=== PATIENT | female | born 1955 | race Two or more races ===

== ENCOUNTER 2024-10-06 14:34 | Outpatient (AMB) | payer OTHER, SELFPAY ==
[2024-10-06 15:14] VITALS: BP 151/78; PULSE 72; RESP 19; TEMP 36.7; O2SAT 98; BMI 40.0
--- NOTE | 2024-10-06 15:14 | ACNOTE_ITS ---
Vital Signs 10/06/24 15:14 Height 1.52 m Height Method Stated Weight 92.533 kg Weight Measurement Method Standing Scale BMI 40.0 BP 151/78 H Blood Pressure Source Automatic Cuff Blood Pressure Location Left Upper Arm Position Sitting Respiration 19 Pulse 72 Pulse Source Monitor Temp 98.1 F Temp Source Oral Pulse Oximetry (%) 98 Oxygen Delivery Method Room Air Allergies/Meds Allergies & Medications Allergies No Known Allergies Allergy (Verified 10/06/24 15:16) Medication Reconciliation FreeStyle Aris 3 Sensor (blood-glucose sensor) #2 ea 12/06/23 [Rx Confirmed 10/06/24] blood-glucose sensor (FreeStyle Aris 3 Sensor device) #1 ea 01/10/24 [Rx Confirmed 10/06/24] blood-glucose meter (Accu-Chek Guide Me Glucose Meter) #1 ea 05/22/24 [Rx Confirmed 10/06/24] blood sugar diagnostic (Accu-Chek Guide test strips) #50 ea 09/08/24 [Rx Confirmed 10/06/24] insulin lispro 100 unit/mL subcutaneous pen (Admelog SoloStar U-100 Insulin lispro) 3 unit (0.03 mL) subcut TID 30 days #2.7 mL 09/08/24 [Rx Confirmed 10/06/24] lancets (Accu-Chek Softclix Lancets) #100 ea 09/08/24 [Rx Confirmed 10/06/24] pen needle, diabetic 31 gauge x 3/16 (Comfort EZ Pen Chadwick) #1,200 ea 09/08/24 [Rx Confirmed 10/06/24] atorvastatin 40 mg tablet 40 mg PO HS #30 tabs 10/06/24 [Rx] insulin glargine 100 unit/mL (3 mL) subcutaneous pen (Lantus Solostar U-100 Insulin) 12 unit (0.12 mL) subcut QAM 30 days #3.6 mL 10/06/24 [Rx] metformin 1,000 mg tablet 1,000 mg PO DAILY #30 tabs 10/06/24 [Rx] semaglutide (weight loss) 0.25 mg/0.5 mL subcutaneous pen injector 0.25 mg (0.5 mL) subcut QWEEK #2 mL 10/06/24 [Rx] MA Intake Visit Data Collection New Patient or Established: Established Patient (seen at [facility] within 3 years) Seen by Clinical Staff ONLY (RN/MA): No Pain Present Currently: No Pain scale:: 0 Pain Scale Used: Benavidez-Esparza/Numerical PCP or OBGYN visit in last 3 months: Yes Smoking Status Smoking Status: Never smoker Immunization / Flu Flu Vaccine in the Last 12 Months: No Flu Vaccine Exclusion Criteria: No Exclusion Criteria Past Medical History Past Medical History NEUROLOGIC: Positive Traumatic Brain Injury; Negative Neurological Disorders or Seizures CARDIAC: Positive Cardiac Disorders, Hypercholesterolemia and Hypertension; Negative Congestive Heart Failure RESPIRATORY: Negative Chronic Obstructive Pulmonary Disease (COPD) GASTROINTESTINAL: Negative Gastrointestinal Disorders GENITOURINARY: Negative Genitourinary Disorders or Renal Disease ENDOCRINE: Positive Endocrine Disorders and Diabetes Mellitus Type 2; Negative Diabetes Mellitus Type 1 HEMATOLOGIC: Negative Blood Disorders OTHER HISTORY: Positive Chicken Pox, Measles and Mumps; Negative Autoimmune Disease, Blood Transfusions, Blood Transfusion Reaction, Anesthesia Reactions or Cancer Family History FAMILY HISTORY: Positive Family Cancer (Mother breast cancer, sister with metastatic CA, unknown); Negative Family Psychiatric Problems, Family Respiratory Disorders, Family Cardiac Disorders, Family Gastrointestinal Problems, Family Surgery or Family Anesthesia Reaction Surgical History SURGICAL: Positive Tubal Ligation (1990); Negative Cardiac Surgery, Endocrine Surgery, Ear Surgery, Abdominal Surgery, Nephrectomy, Joint Replacement or Neurologic Surgery Social History SMOKING STATUS: Smoking status: Never smoker ALCOHOL: Alcohol Intake: Never HOUSING: Housing: House LIVES WITH: Lives With: Family Patient Portal [facility] Social History Living Situation History Housing: House Tobacco History Smoking Status: Never smoker Alcohol History Alcohol Intake: Never Review of Systems Report any current symptoms Only answer those that you have currently: Past Medical History Past Medical History Have you ever been diagnosed with any of the following: Neurological Problems Seizures: No Traumatic Brain Injury: Yes Cardiology Problems Hypercholesterolemia: Yes Congestive Heart Failure: No Hypertension: Yes Respiratory Problems Chronic Obstructive Pulmonary Disease (COPD): No Genital/Urinary Problems Renal Disease: No Endocrine Problems Diabetes Mellitus Type 1: No Diabetes Mellitus Type 2: Yes Other Problems Autoimmune Disease: No Blood Transfusions: No Blood Transfusion Reaction: No Anesthesia Reactions: No Chicken Pox: Yes Measles: Yes Mumps: Yes Cancer: No History of Present Illness HPI Narrative 68-year-old female with past medical history of hypertension, diabetes who presented to the clinic for follow-up after phone appointment. During previous phone appointment 2 days ago patient stated she had severe headache that was not relieved with Advil, provider recommended patient to present to clinic and further evaluate. Today patient refers resolution of headache, however systolic blood pressure noted to be 163, patient's medications were reviewed in the system, however they do not match what patient is taking (as per physical bag with medicine bottles). Patient refers only taking what is physically here which is: Atorvastatin 40, losartan 25, carvedilol 6.5, and Lasix 40. She also refers taking insulin 15 units of glargine not physically present. Patient advised to increase dose of losartan to 50 as headache is most likely related to hypertension. New prescription sent to pharmacy. Patient advised to check blood pressure at home and bring a diary. CBC, A1c and CMP ordered for next visit, we will reevaluate patient in 1 month and consider switching to Mounjaro or Ozempic + metformin. 08/25/2024?Los Galvez MD. Patient is following up with an over the phone appointment. She was seen in July due to recurrent headache that seem to be consistent with elevated blood pressures. Patient has been feeling well since we increase her blood pressure medication, losartan to 50 mg p.o. daily. Patient has not had any more recurrent episodes of headaches or blurry vision and denies any chest pain or palpitations. Patient's blood sugars have been in the 160s fasting and repeat A1c came back at 10.0 which is a slight improvement from the 10.3. CBC was within normal limits and and for some reason there is no CMP provided. I refilled patient's atorvastatin and metformin and will start patient on Ozempic for further diabetic control. Will order CMP as well as microalbumin/creatinine ratio as patient has a long history of diabetes and may be dumping protein in her urine. Patient agrees with the plan and will follow- up in 2 weeks for lab results. 09/08/24 Patient is following up with over the phone appointment. She has been doing well since last conversation and after further questioning she states that her fasting glucose has been in the 60s and patient denies any symptoms. She was counseled on low blood sugar levels and was instructed to cut down her long acting insulin to 12 units per day. She was also advised to stop her lispro before bed if she did not eat too much. Patient's microalbumin/creatning ratio is 2146 with 1+ protein in UA. She was advised to increase her losartan to 100mg per day. We are holding SGLT2 as patient has a history of UTI requiring admission. Will consider starting finerenone. Patient is otherwise feeling well denying any chest pain, palpitations, SOB, dysuria or diarrhea. She continues to take her metformin and we will refill her medications today. She did not get semaglutide at the pharmacy. Will attempt resending it to help control diabetes and wean her off of insulin. 10/06/2024 patient is here for follow-up and was accompanied by her . She has no acute complaints and denies any chest pain, shortness of breath, palpitations, diarrhea or constipation or dysuria. When asked about her fasting glucose patient's stated that she does not measure her glucose levels. Patient was counseled on the importance of measuring at least the fasting glucose levels. She was told to stick to the Lantus 12 units/day and if she feels tremulous and diaphoretic to measure blood sugar levels and eat some orange juice or sandwich. asked if they could use 12 units of the short acting as he was strongly recommended not to do so and I further counseled them on how the long-acting work versus the short acting insulin. They are also counseled on the importance of detecting hypoglycemic episodes. Patient and understood and agreed with the plan. She needed refills on her medications including metformin insulin and blood pressure medication. Patient did not get a chance to repeat her A1c and will be ordered to the lab today so she can repeated. Patient was also unable to collect her semaglutide from the pharmacy. Emphasized to the patient that she needs to ask for the semaglutide as it would help control her diabetes better and as well as weight loss. Review of Systems Review of Systems Systems Reviewed: All systems reviewed, normal except as documented Objective/Exam Narrative Physical exam: Constitutional: Well nourished and in no acute distress CVS: RRR, S1 and S2 present, no murmurs, rubs or gallops . RESP: CTAB, no SOB, no rales, rhonchi or wheezing. No respiratory Distress GI: Normal BS, Nontender/Nondistended. MSK: Full range of motion, No trauma or deformities or masses. Psych: (AAO) x3. Appropriate mood and affect. Assessment & Plan Diagnosis / Problem List (1) Insulin dependent diabetes mellitus: Status: Acute Assessment & Plan: A1c decreased from > 10.3-10 Microalbumin/createning ration os 2146 Patient has not been measuring her blood glucose levels and was counseled on the importance of measuring it Plan: Continue lantus 12 units qday Continue lispro 3 units 3 times a day and avoid at night if not having a large meal Continue Metforming 1000mg twice a day start semaglutide 0.25 mg IV q. weekly (2) Hypertension: Status: Acute Qualifiers: Hypertension type: primary hypertension Qualified Code(s): I10 - Essential (primary) hypertension Assessment & Plan: Stable, she denies any headache blurry vision or dizziness She last saw the veterans employment representative who started her on Lasix but she does not remember exactly what dose Plan: Continue losartan 100mg p.o. daily Continue to follow-up with cardiology Plan Will follow-up with patient in 4 weeks to see if she was approved for GLP-1 inhibitors Orders: Orders Ambulatory Hemoglobin A1C 10/06/24 E11.00 - Type 2 diabetes mellitus with hyperosmolarity without nonketotic hyperglycemic-hyperosmolar coma ([facility]) Additional Assessment Attending note: I, Fred Raphael MD, attest that I was physically present for the herbert portions of the service and evaluated the patient with the resident and I reviewed and discussed the case with the resident and agree with the resident's findings and plans of care as documented above. Follow-up visit. Diabetes self- care reviewed including diet, exercise, footcare, eye care, insulin injections. Short acting and long-acting insulin reviewed. Repeat labs ordered today. Patient has not yet obtained semaglutide, will attempt to do so. Needed refills provided today. Fred Raphael MD Advanced Care Planning Advance care planning discussed with:: patient Physician Billing Established Patient Established Patient: E/M Level 3-CPT 44701 Office Procedures [facility] Level of Care Nursing/Assessment Patient Status: Established Patient Nursing Assessment/Reassessment: Medication Reconciliation, Update PMH in EMR and Vital Signs Coordination of Care: Complex Care and Chronic Disease 1-5, Education Complex Pt/Fam, Results/Orders obtained and Staff clarify orders Established Patient Charge Established Patient Point Assignment: 90 Established Patient Point Charge: Level 3 (80-115)
== END 2024-10-06 15:52 | disposition home or self-care (01) ==
LOC: HODAHC 14:34
PROVIDERS: PCP Student in an Organized Health Care Education/Training Program; Referring Provider Student in an Organized Health Care Education/Training Program; Supervising Provider Internal Medicine; Visit Provider Student in an Organized Health Care Education/Training Program
DX: E11.9 Type 2 diabetes mellitus without complications (principal); Z79.4 Long term (current) use of insulin; Z79.84 Long term (current) use of oral hypoglycemic drugs; I10 Essential (primary) hypertension
CPT/HCPCS: 99213; G0463

== ENCOUNTER → 2024-10-07 | Outpatient (CLI) | payer OTHER, SELFPAY | END | disposition home or self-care (01) | LOC: COPL 08:39 | PROVIDERS: PCP Internal Medicine; Referring Provider Student in an Organized Health Care Education/Training Program; Visit Provider Student in an Organized Health Care Education/Training Program | DX: Z53.8 Procedure and treatment not carried out for other reasons (principal) | CPT/HCPCS: 36415; 83036 ==

== ENCOUNTER → 2024-10-08 | Outpatient (CLI) | payer OTHER, SELFPAY ==
[2024-10-08 10:40] LABS: Glucose Estimated Average 335 mg/dL (80-131); Hemoglobin A1C 13.3 % Hgb (4.8-6.0)
== END | disposition home or self-care (01) ==
PROVIDERS: PCP Student in an Organized Health Care Education/Training Program; Referring Provider Student in an Organized Health Care Education/Training Program; Visit Provider Student in an Organized Health Care Education/Training Program
DX: E11.00 Type 2 diabetes mellitus with hyperosmolarity without nonketotic hyperglycemic-hyperosmolar coma (NKHHC) (principal)
CPT/HCPCS: 36415; 83036

== ENCOUNTER 2025-01-14 09:46 | Outpatient (AMB) | payer OTHER, SELFPAY ==
[2025-01-14 10:06] VITALS: BP 161/78; PULSE 75; RESP 16; TEMP 36.6; O2SAT 91; BMI 42.2
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
== END 2025-01-14 11:30 | disposition home or self-care (01) ==
LOC: HODAHC 09:46
PROVIDERS: PCP Student in an Organized Health Care Education/Training Program; Referring Provider Student in an Organized Health Care Education/Training Program; Supervising Provider Internal Medicine
DX: Z76.0 Encounter for issue of repeat prescription (principal); E66.9 Obesity, unspecified; R53.1 Weakness; Z68.41 Body mass index [BMI] 40.0-44.9, adult; E11.9 Type 2 diabetes mellitus without complications; Z79.4 Long term (current) use of insulin; Z79.84 Long term (current) use of oral hypoglycemic drugs; I10 Essential (primary) hypertension; Z74.09 Other reduced mobility
CPT/HCPCS: 99213; G0463

== ENCOUNTER 2025-03-18 09:43 | Outpatient (AMB) | payer MEDICARE, BC, SELFPAY ==
[2025-03-18 10:03] VITALS: BP 189/80; PULSE 65; RESP 18; TEMP 36.4; O2SAT 95; BMI 41.3
--- NOTE | 2025-03-18 10:03 | ACNOTE_ITS ---
Vital Signs 03/18/25 10:03 Height 1.52 m Height Method Stated Weight 95.368 kg Weight Measurement Method Standing Scale BMI 41.3 BP 189/80 H Blood Pressure Source Automatic Cuff Blood Pressure Location Right Upper Arm Position Sitting Respiration 18 Pulse 65 Pulse Source Monitor Temp 97.5 F Temp Source Temporal Artery Scan Pulse Oximetry (%) 95 Oxygen Delivery Method Room Air Allergies/Meds Allergies & Medications Allergies No Known Allergies Allergy (Verified 03/18/25 10:06) Medication Reconciliation atorvastatin 40 mg tablet 40 mg PO HS #30 tabs 01/09/25 [Rx Confirmed 03/18/25] Held on 01/14/25. Instructions: Doctor's Order blood sugar diagnostic (Accu-Chek Guide test strips) #50 ea 03/18/25 [Rx] blood-glucose meter (Accu-Chek Guide Me Glucose Meter) #1 ea 03/18/25 [Rx] blood-glucose sensor (FreeStyle Aris 3 Sensor device) #1 ea 03/18/25 [Rx] blood-glucose,mechanical technical service specialist,cont (FreeStyle Aris 3 Central) #2 ea 03/18/25 [Rx] carvedilol 6.25 mg tablet 6.25 mg PO BID #60 tabs 03/18/25 [Rx] furosemide 40 mg tablet 20 mg (1/2 x 40 mg) PO QAM #30 tabs 03/18/25 [Rx] insulin glargine 100 unit/mL (3 mL) subcutaneous pen (Lantus Solostar U-100 Insulin) 15 unit (0.15 mL) subcut QAM 30 days #4.5 mL 03/18/25 [Rx] insulin lispro 100 unit/mL subcutaneous pen (Admelog SoloStar U-100 Insulin lispro) 3 unit (0.03 mL) subcut TID 30 days #15 mL 03/18/25 [Rx] lancets (Accu-Chek Softclix Lancets) #100 ea 03/18/25 [Rx] losartan 100 mg tablet 100 mg PO QDAY #30 tabs 03/18/25 [Rx] metformin 1,000 mg tablet 1,000 mg PO DAILY #30 tabs 03/18/25 [Rx] pen needle, diabetic 31 gauge x 3/16 (Comfort EZ Pen Collison) #100 ea 03/18/25 [Rx] semaglutide 3 mg tablet (Rybelsus) 3 mg PO QDAY 30 days #30 tabs 03/18/25 [Rx] JOSE Intake Visit Data Collection New Patient or Established: Established Patient (seen at [facility] within 3 years) Seen by Clinical Staff ONLY (RN/JOSE): No Pain Present Currently: No Pain scale:: 0 Pain Scale Used: Benavidez-Esparza/Numerical Garnetter Required: No PCP or OBGYN visit in last 3 months: No Hx Now: No Do You Feel Safe at Home: Yes Authorities Contacted: N/A Smoking Status Smoking Status: Never smoker Immunization / Flu Flu Vaccine in the Last 12 Months: No Flu Vaccine Exclusion Criteria: No Exclusion Criteria Past Medical History Past Medical History NEUROLOGIC: Positive Traumatic Brain Injury; Negative Neurological Disorders or Seizures CARDIAC: Positive Cardiac Disorders, Hypercholesterolemia and Hypertension; Negative Congestive Heart Failure RESPIRATORY: Negative Chronic Obstructive Pulmonary Disease (COPD) GASTROINTESTINAL: Negative Gastrointestinal Disorders GENITOURINARY: Negative Genitourinary Disorders or Renal Disease ENDOCRINE: Positive Endocrine Disorders and Diabetes Mellitus Type 2; Negative Diabetes Mellitus Type 1 HEMATOLOGIC: Negative Blood Disorders OTHER HISTORY: Positive Chicken Pox, Measles and Mumps; Negative Autoimmune Disease, Blood Transfusions, Blood Transfusion Reaction, Anesthesia Reactions or Cancer Family History FAMILY HISTORY: Positive Family Cancer (Mother breast cancer, sister with metastatic CA, unknown); Negative Family Psychiatric Problems, Family Respiratory Disorders, Family Cardiac Disorders, Family Gastrointestinal Problems, Family Surgery or Family Anesthesia Reaction Surgical History SURGICAL: Positive Tubal Ligation (1990); Negative Cardiac Surgery, Endocrine Surgery, Ear Surgery, Abdominal Surgery, Nephrectomy, Joint Replacement or Neurologic Surgery Social History SMOKING STATUS: Smoking status: Never smoker ALCOHOL: Alcohol Intake: Never HOUSING: Housing: House LIVES WITH: Lives With: Family Patient Portal Jean Social History Living Situation History Housing: House Tobacco History Smoking Status: Never smoker Alcohol History Alcohol Intake: Never Domestic Abuse History Do You Feel Safe at Home: Yes Review of Systems Report any current symptoms Only answer those that you have currently: Past Medical History Past Medical History Have you ever been diagnosed with any of the following: Neurological Problems Seizures: No Traumatic Brain Injury: Yes Cardiology Problems Hypercholesterolemia: Yes Congestive Heart Failure: No Hypertension: Yes Respiratory Problems Chronic Obstructive Pulmonary Disease (COPD): No Genital/Urinary Problems Renal Disease: No Endocrine Problems Diabetes Mellitus Type 1: No Diabetes Mellitus Type 2: Yes Other Problems Autoimmune Disease: No Blood Transfusions: No Blood Transfusion Reaction: No Anesthesia Reactions: No Chicken Pox: Yes Measles: Yes Mumps: Yes Cancer: No History of Present Illness HPI Narrative 68-year-old female with past medical history of hypertension, diabetes who presented to the clinic for follow-up after phone appointment. During previous phone appointment 2 days ago patient stated she had severe headache that was not relieved with Advil, provider recommended patient to present to clinic and further evaluate. Today patient refers resolution of headache, however systolic blood pressure noted to be 163, patient's medications were reviewed in the system, however they do not match what patient is taking (as per physical bag with medicine bottles). Patient refers only taking what is physically here which is: Atorvastatin 40, losartan 25, carvedilol 6.5, and Lasix 40. She also refers taking insulin 15 units of glargine not physically present. Patient advised to increase dose of losartan to 50 as headache is most likely related to hypertension. New prescription sent to pharmacy. Patient advised to check blood pressure at home and bring a diary. CBC, A1c and CMP ordered for next visit, we will reevaluate patient in 1 month and consider switching to Mounjaro or Ozempic + metformin. 08/25/2024?Los Galvez MD. Patient is following up with an over the phone appointment. She was seen in July due to recurrent headache that seem to be consistent with elevated blood pressures. Patient has been feeling well since we increase her blood pressure medication, losartan to 50 mg p.o. daily. Patient has not had any more recurrent episodes of headaches or blurry vision and denies any chest pain or palpitations. Patient's blood sugars have been in the 160s fasting and repeat A1c came back at 10.0 which is a slight improvement from the 10.3. CBC was within normal limits and and for some reason there is no CMP provided. I refilled patient's atorvastatin and metformin and will start patient on Ozempic for further diabetic control. Will order CMP as well as microalbumin/creatinine ratio as patient has a long history of diabetes and may be dumping protein in her urine. Patient agrees with the plan and will follow- up in 2 weeks for lab results. 09/08/24 Patient is following up with over the phone appointment. She has been doing well since last conversation and after further questioning she states that her fasting glucose has been in the 60s and patient denies any symptoms. She was counseled on low blood sugar levels and was instructed to cut down her long acting insulin to 12 units per day. She was also advised to stop her lispro before bed if she did not eat too much. Patient's microalbumin/creatning ratio is 2146 with 1+ protein in UA. She was advised to increase her losartan to 100mg per day. We are holding SGLT2 as patient has a history of UTI requiring admission. Will consider starting finerenone. Patient is otherwise feeling well denying any chest pain, palpitations, SOB, dysuria or diarrhea. She continues to take her metformin and we will refill her medications today. She did not get semaglutide at the pharmacy. Will attempt resending it to help control diabetes and wean her off of insulin. 10/06/2024 patient is here for follow-up and was accompanied by her . She has no acute complaints and denies any chest pain, shortness of breath, palpitations, diarrhea or constipation or dysuria. When asked about her fasting glucose patient's stated that she does not measure her glucose levels. Patient was counseled on the importance of measuring at least the fasting glucose levels. She was told to stick to the Lantus 12 units/day and if she feels tremulous and diaphoretic to measure blood sugar levels and eat some orange juice or sandwich. asked if they could use 12 units of the short acting as he was strongly recommended not to do so and I further counseled them on how the long-acting work versus the short acting insulin. They are also counseled on the importance of detecting hypoglycemic episodes. Patient and understood and agreed with the plan. She needed refills on her medications including metformin insulin and blood pressure medication. Patient did not get a chance to repeat her A1c and will be ordered to the lab today so she can repeated. Patient was also unable to collect her semaglutide from the pharmacy. Emphasized to the patient that she needs to ask for the semaglutide as it would help control her diabetes better and as well as weight loss. 01/14/2025. Here to follow-up for medication refill. Has been seen by cardiology, Dr. Pearl, for lower extremity edema, and was prescribed LASIX 40 daily and CARVEDILOL 6.25 which she is currently taking. She is unaware if she was diagnosed with heart failure. However, she has an appointment with cardiology tomorrow. Reports increasing difficulty with ambulation while running or j ogging, and trouble getting up from seated position. Reports an episode where she fell after tripping on the sidewalk, she had to call somebody to help lift her up. She states her legs aren't as strong as as used to be. Will order physical therapy. She checks her GLUCOSE in the morning before meal, on average she gets a reading of 170. During last visit, SEMAGLUTIDE was added, however was not approved by her insurance. Will try RYBELSUS at this time. She is taking LOSARTAN 50 mg daily, should be on 100 mg daily, states her blood pressure usually around 160. 03/18/2025 Returns to office for follow-up. Her insurance was terminated after she left her job, has new coverage now. Subsequently was unable to get her meds and lab orders. She has insulin at home but currently only using long-acting. Not checking her glucose at home. We had ordered CGS device but was unable to get it due to lack of insurance coverage. BP elevated today, 189/80. HR 18. Denies MCDANIEL, visual or auditory changes, weakness or lightheadedness. Denies fever, chills, headaches, chest pain, sob, cough, GI or urinary symptoms. Had trace ishan LE edema on exam, lungs CTAB w/o w/r/r. We reordered meds, and GCM, decreased LASIX to 20 mg daily given improvement in LE edema. New cardiology referral placed. Ordered labs: CBC, CMP, A1C, TSH, Lipids. Will follow-up in 2 weeks. Objective/Exam Narrative Physical exam: GENERAL * Obese, otherwise normal-appearing adult female, NAD HEENT * NCAT.?MAUREEN. Oral mucosa is moist. Patent Nares NECK * Supple, nontender, no thyromegaly, no meningismus, no JVD, no step offs CHEST * RRR, no m/g/r * CTAB, no w/r/r. Symmetrical chest rise. No intercostal subcostal retraction * Atraumatic, nontender, no crepitus, symmetrical expansion. ABDOMEN * Soft, flat, nontender. No guarding/rebound tenderness/masses. * Bowel sounds presents EXTREMITIES * Trace ishan LE edema. No rashes SKIN * Warm and dry, no jaundice/rashes. NEUROMUSCULAR * No lumbar or midline, no CVA, no paraspinal muscle spasm or tenderness. * Moves all 4 extremities well, with full ROM and good CSM. * JOHNSON x4, CN II-XII grossly intact. * No focal neurologic deficits. PSYCHIATRY * Normal mood and affect, cooperative, no SI or HI or hallucinations. Assessment & Plan Diagnosis / Problem List (1) Insulin dependent diabetes mellitus: Status: Acute Assessment & Plan: No recent A1C on file. Was unable to obtain labs 2/2 insruance coverage. Not checking home glucose. Finger stick glucose 236 today Plan: Increased basal insulin to 15 units HS Refill insulin 3 units TID Reordered REBELSUS and METFORMIN 1000 MG qday Return with glucoe reading, given iinstruction and template Ordered CGB, glucose monitor and strips, A1C (2) Hypertension: Status: Acute Qualifiers: Hypertension type: primary hypertension Qualified Code(s): I10 - Essential (primary) hypertension Assessment & Plan: Poorly controlled. Out of medication 2/2 insurance coverage Does not check Bp at home BP 189/80, HR 65 Asymptomatic without chest pain/pressure, sob, headache, visual/auditory changes Plan: Reorder CAREDILOL 6.25 BID Reordered LOSARTAN 100 mg Gave blood pressure log (3) Lower extremity edema: Status: Acute Assessment & Plan: Concern for CHF given LE edema Has been out of LASIX 40 mg daily Denies sob, orthopnea, chest pain, cough or LE edema Had trace ishan LE edema, lungs clear with crackles or wheezing Plan: Place referral for cardiology, states she had CATH done earlier this year, records not on file Deferred ECHO to cardiology Ordered labs CBC, CMP, LIPID, TSH, BNP, A1C Orders: Orders CBC Today E11.00 - Type 2 diabetes mellitus with hyperosmolarity without nonketotic hyperglycemic-hyperosmolar coma ([facility]), Z00.01 - Encounter for general adult medical examination with abnormal findings Comprehensive Metabolic Panel Today E11.00 - Type 2 diabetes mellitus with hyperosmolarity without nonketotic hyperglycemic-hyperosmolar coma ([facility]), I50.9 - Heart failure, unspecified Ambulatory Hemoglobin A1C Today E11.00 - Type 2 diabetes mellitus with hyperosmolarity without nonketotic hyperglycemic-hyperosmolar coma ([facility]) Lipid Panel Today I50.9 - Heart failure, unspecified Thyroid Stimulating Hormone Today I50.9 - Heart failure, unspecified, Z00.01 - Encounter for general adult medical examination with abnormal findings B-Type Natriuretic Peptide Today I50.9 - Heart failure, unspecified Referrals Cardiology I50.9 - Heart failure, unspecified, R60.0 - Localized edema Advanced Care Planning Advance care planning discussed with:: patient Office Procedures [facility] Level of Care Nursing/Assessment Patient Status: Established Patient Nursing Assessment/Reassessment: Medication Reconciliation, Update PMH in EMR and Vital Signs Coordination of Care: Complex Care and Chronic Disease 1-5, Consent,records obtained, informed consent, Education Simp Pt/Fam and Staff clarify orders Established Patient Charge Established Patient Point Assignment: 85 Established Patient Point Charge: EP Level 3 (80-115)
== END 2025-03-18 11:10 | disposition home or self-care (01) ==
PROVIDERS: Supervising Provider Internal Medicine
DX: E11.9 Type 2 diabetes mellitus without complications (principal); I10 Essential (primary) hypertension; R60.0 Localized edema; Z79.4 Long term (current) use of insulin
CPT/HCPCS: 99213; G0463

== ENCOUNTER 2025-04-01 09:11 | Outpatient (AMB) | payer MEDICARE, BC, SELFPAY ==
[2025-04-01 09:50] VITALS: BP 191/83; PULSE 63; RESP 20; TEMP 36.4; O2SAT 96; BMI 40.3
--- NOTE | 2025-04-01 09:50 | ACNOTE_ITS ---
Vital Signs 04/01/25 09:50 Height 1.52 m Height Method Stated Weight 93.157 kg Weight Measurement Method Standing Scale BMI 40.3 BP 191/83 H Blood Pressure Source Automatic Cuff Blood Pressure Location Right Upper Arm Position Sitting Respiration 20 Pulse 63 Pulse Source Monitor Temp 97.5 F Temp Source Temporal Artery Scan Pulse Oximetry (%) 96 Oxygen Delivery Method Room Air Allergies/Meds Allergies & Medications Allergies No Known Allergies Allergy (Verified 04/01/25 09:51) Medication Reconciliation atorvastatin 40 mg tablet 40 mg PO HS #30 tabs 04/15/25 [Rx] blood sugar diagnostic (Accu-Chek Guide test strips) #50 ea 04/15/25 [Rx] blood-glucose meter (Accu-Chek Guide Me Glucose Meter) #1 ea 04/15/25 [Rx] blood-glucose sensor (FreeStyle Aris 3 Sensor device) #1 ea 04/15/25 [Rx] blood-glucose,artist color separation,cont (FreeStyle Aris 3 [place]) #2 ea 04/15/25 [Rx] carvedilol 6.25 mg tablet 6.25 mg PO BID #60 tabs 04/15/25 [Rx] furosemide 40 mg tablet 20 mg (1/2 x 40 mg) PO QAM #30 tabs 04/15/25 [Rx] insulin glargine 100 unit/mL (3 mL) subcutaneous pen (Lantus Solostar U-100 Insulin) 15 unit (0.15 mL) subcut QAM 30 days #4.5 mL 04/15/25 [Rx] insulin lispro 100 unit/mL subcutaneous pen (Admelog SoloStar U-100 Insulin lispro) 3 unit (0.03 mL) subcut TID 30 days #15 mL 04/15/25 [Rx] lancets (Accu-Chek Softclix Lancets) #100 ea 04/15/25 [Rx] losartan 100 mg tablet 100 mg PO QDAY #30 tabs 04/15/25 [Rx] metformin 1,000 mg tablet 1,000 mg PO DAILY #30 tabs 04/15/25 [Rx] pen needle, diabetic 31 gauge x 3/16 (Comfort EZ Pen [place]) #100 ea 04/15/25 [Rx] semaglutide 3 mg tablet (Rybelsus) 3 mg PO QDAY 30 days #30 tabs 04/15/25 [Rx] MA Intake Visit Data Collection New Patient or Established: Established Patient (seen at [facility] within 3 years) Pain Present Currently: No PCP or OBGYN visit in last 3 months: Yes Smoking Status Smoking Status: Never smoker Immunization / Flu Flu Vaccine in the Last 12 Months: No Flu Vaccine Exclusion Criteria: Refused by Patient Past Medical History Past Medical History NEUROLOGIC: Positive Traumatic Brain Injury; Negative Neurological Disorders or Seizures CARDIAC: Positive Cardiac Disorders, Hypercholesterolemia and Hypertension; Negative Congestive Heart Failure RESPIRATORY: Negative Chronic Obstructive Pulmonary Disease (COPD) GASTROINTESTINAL: Negative Gastrointestinal Disorders GENITOURINARY: Negative Genitourinary Disorders or Renal Disease ENDOCRINE: Positive Endocrine Disorders and Diabetes Mellitus Type 2; Negative Diabetes Mellitus Type 1 HEMATOLOGIC: Negative Blood Disorders OTHER HISTORY: Positive Chicken Pox, Measles and Mumps; Negative Autoimmune Disease, Blood Transfusions, Blood Transfusion Reaction, Anesthesia Reactions or Cancer Family History FAMILY HISTORY: Positive Family Cancer (Mother breast cancer, sister with metastatic CA, unknown); Negative Family Psychiatric Problems, Family Respiratory Disorders, Family Cardiac Disorders, Family Gastrointestinal Problems, Family Surgery or Family Anesthesia Reaction Surgical History SURGICAL: Positive Tubal Ligation (1990); Negative Cardiac Surgery, Endocrine Surgery, Ear Surgery, Abdominal Surgery, Nephrectomy, Joint Replacement or Neurologic Surgery Social History SMOKING STATUS: Smoking status: Never smoker ALCOHOL: Alcohol Intake: Never HOUSING: Housing: House LIVES WITH: Lives With: Family Patient Portal Questionaires PHQ-9 PHQ-2 Over the last 2 weeks, how often have you been bothered by any of the following problems? 1. Little interest or pleasure in doing things: not at all 2. Feeling down, depressed, or hopeless: not at all Total score: 0 Depression screen completed yes Social History Living Situation History Housing: House Tobacco History Smoking Status: Never smoker Alcohol History Alcohol Intake: Never Review of Systems Report any current symptoms Only answer those that you have currently: Past Medical History Past Medical History Have you ever been diagnosed with any of the following: Neurological Problems Seizures: No Traumatic Brain Injury: Yes Cardiology Problems Hypercholesterolemia: Yes Congestive Heart Failure: No Hypertension: Yes Respiratory Problems Chronic Obstructive Pulmonary Disease (COPD): No Genital/Urinary Problems Renal Disease: No Endocrine Problems Diabetes Mellitus Type 1: No Diabetes Mellitus Type 2: Yes Other Problems Autoimmune Disease: No Blood Transfusions: No Blood Transfusion Reaction: No Anesthesia Reactions: No Chicken Pox: Yes Measles: Yes Mumps: Yes Cancer: No History of Present Illness [facility] Narrative 68-year-old female with past medical history of hypertension, diabetes who presented to the clinic for follow-up after phone appointment. During previous phone appointment 2 days ago patient stated she had severe headache that was not relieved with Advil, provider recommended patient to present to clinic and further evaluate. Today patient refers resolution of headache, however systolic blood pressure noted to be 163, patient's medications were reviewed in the system, however they do not match what patient is taking (as per physical bag with medicine bottles). Patient refers only taking what is physically here which is: Atorvastatin 40, losartan 25, carvedilol 6.5, and Lasix 40. She also refers taking insulin 15 units of glargine not physically present. Patient advised to increase dose of losartan to 50 as headache is most likely related to hypertension. New prescription sent to pharmacy. Patient advised to check blood pressure at home and bring a diary. CBC, A1c and CMP ordered for next visit, we will reevaluate patient in 1 month and consider switching to Mounjaro or Ozempic + metformin. 08/25/2024?Los Galvez MD. Patient is following up with an over the phone appointment. She was seen in July due to recurrent headache that seem to be consistent with elevated blood pressures. Patient has been feeling well since we increase her blood pressure medication, losartan to 50 mg p.o. daily. Patient has not had any more recurrent episodes of headaches or blurry vision and denies any chest pain or palpitations. Patient's blood sugars have been in the 160s fasting and repeat A1c came back at 10.0 which is a slight improvement from the 10.3. CBC was within normal limits and and for some reason there is no CMP provided. I refilled patient's atorvastatin and metformin and will start patient on Ozempic for further diabetic control. Will order CMP as well as microalbumin/creatinine ratio as patient has a long history of diabetes and may be dumping protein in her urine. Patient agrees with the plan and will follow- up in 2 weeks for lab results. 09/08/24 Patient is following up with over the phone appointment. She has been doing well since last conversation and after further questioning she states that her fasting glucose has been in the 60s and patient denies any symptoms. She was counseled on low blood sugar levels and was instructed to cut down her long acting insulin to 12 units per day. She was also advised to stop her lispro before bed if she did not eat too much. Patient's microalbumin/creatning ratio is 2146 with 1+ protein in UA. She was advised to increase her losartan to 100mg per day. We are holding SGLT2 as patient has a history of UTI requiring admission. Will consider starting finerenone. Patient is otherwise feeling well denying any chest pain, palpitations, SOB, dysuria or diarrhea. She continues to take her metformin and we will refill her medications today. She did not get semaglutide at the pharmacy. Will attempt resending it to help control diabetes and wean her off of insulin. 10/06/2024 patient is here for follow-up and was accompanied by her . She has no acute complaints and denies any chest pain, shortness of breath, palpitations, diarrhea or constipation or dysuria. When asked about her fasting glucose patient's stated that she does not measure her glucose levels. Patient was counseled on the importance of measuring at least the fasting glucose levels. She was told to stick to the Lantus 12 units/day and if she feels tremulous and diaphoretic to measure blood sugar levels and eat some orange juice or sandwich. asked if they could use 12 units of the short acting as he was strongly recommended not to do so and I further counseled them on how the long-acting work versus the short acting insulin. They are also counseled on the importance of detecting hypoglycemic episodes. Patient and understood and agreed with the plan. She needed refills on her medications including metformin insulin and blood pressure medication. Patient did not get a chance to repeat her A1c and will be ordered to the lab today so she can repeated. Patient was also unable to collect her semaglutide from the pharmacy. Emphasized to the patient that she needs to ask for the semaglutide as it would help control her diabetes better and as well as weight loss. 01/14/2025. Here to follow-up for medication refill. Has been seen by cardiology, Dr. Pearl, for lower extremity edema, and was prescribed LASIX 40 daily and CARVEDILOL 6.25 which she is currently taking. She is unaware if she was diagnosed with heart failure. However, she has an appointment with cardiology tomorrow. Reports increasing difficulty with ambulation while running or jogging, and trouble getting up from seated position. Reports an episode where she fell after tripping on the sidewalk, she had to call somebody to help lift her up. She states her legs aren't as strong as as used to be. Will order physical therapy. She checks her GLUCOSE in the morning before meal, on average she gets a reading of 170. During last visit, SEMAGLUTIDE was added, however was not approved by her insurance. Will try RYBELSUS at this time. She is taking LOSARTAN 50 mg daily, should be on 100 mg daily, states her blood pressure usually around 160. 03/18/2025 Returns to office for follow-up. Her insurance was terminated after she left her job, has new coverage now. Subsequently was unable to get her meds and lab orders. She has insulin at home but currently only using long-acting. Not checking her glucose at home. We had ordered CGS device but was unable to get it due to lack of insurance coverage. BP elevated today, 189/80. HR 18. Denies MCDANIEL, visual or auditory changes, weakness or lightheadedness. Denies fever, chills, headaches, chest pain, sob, cough, GI or urinary symptoms. Had trace ishan LE edema on exam, lungs CTAB w/o w/r/r. We reordered meds, and GCM, decreased LASIX to 20 mg daily given improvement in LE edema. New cardiology referral placed. Ordered labs: CBC, CMP, A1C, TSH, Lipids. Will follow-up in 2 weeks. 04/01/2025 follow-up labs. Feels well otherwise, denies new symptoms or worsening of symptoms. Denies fever, chills, headaches, chest pain, sob, cough, GI or urinary symptoms. She did labs but we were unable to view labs thru [employer]. She has been out of her medications, pending new insurance before she get her meds. BP 191/83 today, not checking BP at home. BG 260 today, currently not taking meds. Recommended continue taking medications, return to office in 2 weeks for lab reviews. Objective/Exam Narrative Physical exam: GENERAL * Obese, NAD HEENT * NCAT.?MAUREEN. Oral mucosa is moist. Patent Nares NECK * Supple, nontender, no thyromegaly, no meningismus, no JVD, no step offs CHEST * RRR, no m/g/r * CTAB, no w/r/r. Symmetrical chest rise. No intercostal subcostal retraction * Atraumatic, nontender, no crepitus, symmetrical expansion. ABDOMEN * Soft, flat, nontender. No guarding/rebound tenderness/masses. * Bowel sounds presents EXTREMITIES * 1-2+ edema of LE, no cyanosis.? SKIN * Warm and dry, no jaundice/rashes. NEUROMUSCULAR * No lumbar or midline, no CVA, no paraspinal muscle spasm or tenderness. * Moves all 4 extremities well, with full ROM and good CSM. * JOHNSON x4, CN II-XII grossly intact. * No focal neurologic deficits. PSYCHIATRY * Normal mood and affect, cooperative, no SI or HI or hallucinations. Assessment & Plan Diagnosis / Problem List (1) HLD (hyperlipidemia): Status: Acute (2) Lower extremity edema: Status: Acute (3) Heart failure: Status: Suspected Qualifiers: Heart failure type: unspecified Heart failure chronicity: unspecified Qualified Code(s): I50.9 - Heart failure, unspecified (4) Impaired mobility: Status: Acute (5) Knee pain: Status: Acute Qualifiers: Chronicity: chronic Laterality: left Qualified Code(s): M25.562 - Pain in left knee; G89.29 - Other chronic pain (6) Hypertension: Status: Acute Qualifiers: Hypertension type: primary hypertension Qualified Code(s): I10 - Essential (primary) hypertension (7) Insulin dependent diabetes mellitus: Status: Acute Plan Continue taking home meds as prescribed. Gave Makstr ARIS 3 sensor trial, return with reads. Return with daily BP and BG log. Retun to office in 2 weeks for lab reviews. Advanced Care Planning Advance care planning discussed with:: patient Office Procedures [facility] Level of Care Nursing/Assessment Patient Status: Established Patient Nursing Assessment/Reassessment: BP Monitoring, Medication Reconciliation, Update PMH in EMR and Vital Signs Coordination of Care: Complex Care and Chronic Disease 1-5, Education Complex Pt/Fam and Staff clarify orders Established Patient Charge Established Patient Point Assignment: 100 Established Patient Point Charge: Level 3 (80-115)
== END 2025-04-01 11:16 | disposition home or self-care (01) ==
LOC: HODAHC 09:11
PROVIDERS: Supervising Provider Internal Medicine
DX: E78.5 Hyperlipidemia, unspecified (principal); I11.0 Hypertensive heart disease with heart failure; I50.9 Heart failure, unspecified; M25.562 Pain in left knee; G89.29 Other chronic pain; E11.9 Type 2 diabetes mellitus without complications; Z79.4 Long term (current) use of insulin; R60.0 Localized edema; E66.9 Obesity, unspecified; Z68.41 Body mass index [BMI] 40.0-44.9, adult
CPT/HCPCS: 99213; G0463

== ENCOUNTER 2025-04-15 09:40 | Outpatient (AMB) | payer MEDICARE, BC, SELFPAY ==
[2025-04-15 10:06] VITALS: BP 195/79; PULSE 63; RESP 18; TEMP 36.6; O2SAT 93; BMI 40.3
--- NOTE | 2025-04-15 10:06 | PD.RESCLINIC ---
Vital Signs 04/15/25 10:06 Height 1.52 m Height Method Stated Weight 93.157 kg Weight Measurement Method Standing Scale BMI 40.3 BP 195/79 H Blood Pressure Source Automatic Cuff Blood Pressure Location Right Upper Arm Position Sitting Respiration 18 Pulse 63 Pulse Source Monitor Temp 97.8 F Temp Source Temporal Artery Scan Pulse Oximetry (%) 93 L Oxygen Delivery Method Room Air Allergies/Meds Allergies & Medications Allergies No Known Allergies Allergy (Verified 04/15/25 13:21) Medication Reconciliation atorvastatin 40 mg tablet 40 mg PO HS #30 tabs 04/15/25 [Rx Confirmed 04/15/25] blood sugar diagnostic (Accu-Chek Guide test strips) #50 ea 04/15/25 [Rx Confirmed 04/15/25] blood-glucose meter (Accu-Chek Guide Me Glucose Meter) #1 ea 04/15/25 [Rx Confirmed 04/15/25] blood-glucose sensor (FreeStyle Aris 3 Sensor device) #1 ea 04/15/25 [Rx Confirmed 04/15/25] blood-glucose,inspector welded parts,cont (FreeStyle Aris 3 [place]) #2 ea 04/15/25 [Rx Confirmed 04/15/25] carvedilol 6.25 mg tablet 6.25 mg PO BID #60 tabs 04/15/25 [Rx Confirmed 04/15/25] furosemide 40 mg tablet 20 mg (1/2 x 40 mg) PO QAM #30 tabs 04/15/25 [Rx Confirmed 04/15/25] insulin glargine 100 unit/mL (3 mL) subcutaneous pen (Lantus Solostar U-100 Insulin) 15 unit (0.15 mL) subcut QAM 30 days #4.5 mL 04/15/25 [Rx Confirmed 04/15/25] insulin lispro 100 unit/mL subcutaneous pen (Admelog SoloStar U-100 Insulin lispro) 3 unit (0.03 mL) subcut TID 30 days #15 mL 04/15/25 [Rx Confirmed 04/15/25] lancets (Accu-Chek Softclix Lancets) #100 ea 04/15/25 [Rx Confirmed 04/15/25] losartan 100 mg tablet 100 mg PO QDAY #30 tabs 04/15/25 [Rx Confirmed 04/15/25] metformin 1,000 mg tablet 1,000 mg PO DAILY #30 tabs 04/15/25 [Rx Confirmed 04/15/25] pen needle, diabetic 31 gauge x 3/16 (Comfort EZ Pen Barnard) #100 ea 04/15/25 [Rx Confirmed 04/15/25] semaglutide 3 mg tablet (Rybelsus) 3 mg PO QDAY 30 days #30 tabs 04/15/25 [Rx Confirmed 04/15/25] MA Intake Visit Data Collection New Patient or Established: Established Patient (seen at [facility] within 3 years) Seen by Clinical Staff ONLY (RN/MA): No Pain Present Currently: No Pain scale:: 0 Pain Scale Used: Benavidez-Esparza/Numerical Pastor Required: No PCP or OBGYN visit in last 3 months: Yes Hx Now: No Do You Feel Safe at Home: Yes Authorities Contacted: N/A Smoking Status Smoking Status: Never smoker Immunization / Flu Flu Vaccine in the Last 12 Months: No Flu Vaccine Exclusion Criteria: No Exclusion Criteria Past Medical History Past Medical History NEUROLOGIC: Positive Traumatic Brain Injury; Negative Neurological Disorders or Seizures CARDIAC: Positive Cardiac Disorders, Hypercholesterolemia and Hypertension; Negative Congestive Heart Failure RESPIRATORY: Negative Chronic Obstructive Pulmonary Disease (COPD) GASTROINTESTINAL: Negative Gastrointestinal Disorders GENITOURINARY: Negative Genitourinary Disorders or Renal Disease ENDOCRINE: Positive Endocrine Disorders and Diabetes Mellitus Type 2; Negative Diabetes Mellitus Type 1 HEMATOLOGIC: Negative Blood Disorders OTHER HISTORY: Positive Chicken Pox, Measles and Mumps; Negative Autoimmune Disease, Blood Transfusions, Blood Transfusion Reaction, Anesthesia Reactions or Cancer Family History FAMILY HISTORY: Positive Family Cancer (Mother breast cancer, sister with metastatic CA, unknown); Negative Family Psychiatric Problems, Family Respiratory Disorders, Family Cardiac Disorders, Family Gastrointestinal Problems, Family Surgery or Family Anesthesia Reaction Surgical History SURGICAL: Positive Tubal Ligation (1990); Negative Cardiac Surgery, Endocrine Surgery, Ear Surgery, Abdominal Surgery, Nephrectomy, Joint Replacement or Neurologic Surgery Social History SMOKING STATUS: Smoking status: Never smoker ALCOHOL: Alcohol Intake: Never HOUSING: Housing: House LIVES WITH: Lives With: Family Patient Portal Questionaires PHQ-9 PHQ-2 Over the last 2 weeks, how often have you been bothered by any of the following problems? 1. Little interest or pleasure in doing things: not at all Social History Living Situation History Housing: House Tobacco History Smoking Status: Never smoker Alcohol History Alcohol Intake: Never Domestic Abuse History Do You Feel Safe at Home: Yes Review of Systems Report any current symptoms Only answer those that you have currently: Past Medical History Past Medical History Have you ever been diagnosed with any of the following: Neurological Problems Seizures: No Traumatic Brain Injury: Yes Cardiology Problems Hypercholesterolemia: Yes Congestive Heart Failure: No Hypertension: Yes Respiratory Problems Chronic Obstructive Pulmonary Disease (COPD): No Genital/Urinary Problems Renal Disease: No Endocrine Problems Diabetes Mellitus Type 1: No Diabetes Mellitus Type 2: Yes Other Problems Autoimmune Disease: No Blood Transfusions: No Blood Transfusion Reaction: No Anesthesia Reactions: No Chicken Pox: Yes Measles: Yes Mumps: Yes Cancer: No History of Present Illness HPI Narrative 68-year-old female with past medical history of hypertension, diabetes who presented to the clinic for follow-up after phone appointment. During previous phone appointment 2 days ago patient stated she had severe headache that was not relieved with Advil, provider recommended patient to present to clinic and further evaluate. Today patient refers resolution of headache, however systolic blood pressure noted to be 163, patient's medications were reviewed in the system, however they do not match what patient is taking (as per physical bag with medicine bottles). Patient refers only taking what is physically here which is: Atorvastatin 40, losartan 25, carvedilol 6.5, and Lasix 40. She also refers taking insulin 15 units of glargine not physically present. Patient advised to increase dose of losartan to 50 as headache is most likely related to hypertension. New prescription sent to pharmacy. Patient advised to check blood pressure at home and bring a diary. CBC, A1c and CMP ordered for next visit, we will reevaluate patient in 1 month and consider switching to Mounjaro or Ozempic + metformin. 08/25/2024?Los Galvez MD. Patient is following up with an over the phone appointment. She was seen in July due to recurrent headache that seem to be consistent with elevated blood pressures. Patient has been feeling well since we increase her blood pressure medication, losartan to 50 mg p.o. daily. Patient has not had any more recurrent episodes of headaches or blurry vision and denies any chest pain or palpitations. Patient's blood sugars have been in the 160s fasting and repeat A1c came back at 10.0 which is a slight improvement from the 10.3. CBC was within normal limits and and for some reason there is no CMP provided. I refilled patient's atorvastatin and metformin and will start patient on Ozempic for further diabetic control. Will order CMP as well as microalbumin/creatinine ratio as patient has a long history of diabetes and may be dumping protein in her urine. Patient agrees with the plan and will follow-up in 2 weeks for lab results. 09/08/24 Patient is following up with over the phone appointment. She has been doing well since last conversation and after further questioning she states that her fasting glucose has been in the 60s and patient denies any symptoms. She was counseled on low blood sugar levels and was instructed to cut down her long acting insulin to 12 units per day. She was also advised to stop her lispro before bed if she did not eat too much. Patient's microalbumin/creatning ratio is 2146 with 1+ protein in UA. She was advised to increase her losartan to 100mg per day. We are holding SGLT2 as patient has a history of UTI requiring admission. Will consider starting finerenone. Patient is otherwise feeling well denying any chest pain, palpitations, SOB, dysuria or diarrhea. She continues to take her metformin and we will refill her medications today. She did not get semaglutide at the pharmacy. Will attempt resending it to help control diabetes and wean her off of insulin. 10/06/2024 patient is here for follow-up and was accompanied by her . She has no acute complaints and denies any chest pain, shortness of breath, palpitations, diarrhea or constipation or dysuria. When asked about her fasting glucose patient's stated that she does not measure her glucose levels. Patient was counseled on the importance of measuring at least the fasting glucose levels. She was told to stick to the Lantus 12 units/day and if she feels tremulous and diaphoretic to measure blood sugar levels and eat some orange juice or sandwich. asked if they could use 12 units of the short acting as he was strongly recommended not to do so and I further counseled them on how the long-acting work versus the short acting insulin. They are also counseled on the importance of detecting hypoglycemic episodes. Patient and understood and agreed with the plan. She needed refills on her medications including metformin insulin and blood pressure medication. Patient did not get a chance to repeat her A1c and will be ordered to the lab today so she can repeated. Patient was also unable to collect her semaglutide from the pharmacy. Emphasized to the patient that she needs to ask for the semaglutide as it would help control her diabetes better and as well as weight loss. 01/14/2025. Here to follow-up for medication refill. Has been seen by cardiology, Dr. Pearl, for lower extremity edema, and was prescribed LASIX 40 daily and CARVEDILOL 6.25 which she is currently taking. She is unaware if she was diagnosed with heart failure. However, she has an appointment with cardiology tomorrow. Reports increasing difficulty with ambulation while running or jogging, and trouble getting up from seated position. Reports an episode where she fell after tripping on the sidewalk, she had to call somebody to help lift her up. She states her legs aren't as strong as as used to be. Will order physical therapy. She checks her GLUCOSE in the morning before meal, on average she gets a reading of 170. During last visit, SEMAGLUTIDE was added, however was not approved by her insurance. Will try RYBELSUS at this time. She is taking LOSARTAN 50 mg daily, should be on 100 mg daily, states her blood pressure usually around 160. 03/18/2025 Returns to office for follow-up. Her insurance was terminated after she left her job, has new coverage now. Subsequently was unable to get her meds and lab orders. She has insulin at home but currently only using long-acting. Not checking her glucose at home. We had ordered CGS device but was unable to get it due to lack of insurance coverage. BP elevated today, 189/80. HR 18. Denies MCDANIEL, visual or auditory changes, weakness or lightheadedness. Denies fever, chills, headaches, chest pain, sob, cough, GI or urinary symptoms. Had trace ishan LE edema on exam, lungs CTAB w/o w/r/r. We reordered meds, and GCM, decreased LASIX to 20 mg daily given improvement in LE edema. New cardiology referral placed. Ordered labs: CBC, CMP, A1C, TSH, Lipids. Will follow-up in 2 weeks. 04/01/2025 follow-up labs. Feels well otherwise, denies new symptoms or worsening of symptoms. Denies fever, chills, headaches, chest pain, sob, cough, GI or urinary symptoms. She did labs but we were unable to view labs thru [employer]. She has been out of her medications, pending new insurance before she get her meds. BP 191/83 today, not checking BP at home. BG 260 today, currently not taking meds. Recommended continue taking medications, return to office in 2 weeks for lab reviews. 04/15/2025 follow-up labs. Feels well otherwise, denies new symptoms or worsening of symptoms. Denies fever, chills, headaches, chest pain, sob, cough, GI or urinary symptoms. Labs from 03/30/25 remarkable for GLUCOSE 232, ALBUMIN 3.6, ALP 156, normal LFTs, cholesterol 244, TG 254, LDL 153, HDL 44, A1c 13.6, BNP 399. Renal function was normal. CBC and thyroid function WNL. On exam she had 2+ bilateral extremity edema, referral to cardiology was sent again this time for echo and further workup. BP remains elevated, 195/79 and currently not taking meds. BG 230s today, GCM showing average glucose 230s and 14% in range (although only 4 days recorded). She is taking Insulin twice daily only, state has not been able to get her medication as they are not available at [facility] ([facility] which is closing down. Restarted STATIN 40 mg daily, resent new Rx for Rebelsys which hopefully pharmacy will conver with new insurance, increased GLARGINE to 15 units, continued LISPRO 3 untis TID, refilled all other meds to [facility]. Gave another CGM, ordered CGM through [employer] online and pending auth. Return to office in [address] Pearl's office today with patient in office, appt scheduled for Sunday 2:45. Objective/Exam Narrative Physical exam: GENERAL Obese, NAD HEENT NCAT.?MAUREEN. Oral mucosa is moist. Patent Nares NECK Supple, nontender, no thyromegaly, no meningismus, no JVD, no step offs CHEST RRR, no m/g/r CTAB, no w/r/r. Symmetrical chest rise. No intercostal subcostal retraction Atraumatic, nontender, no crepitus, symmetrical expansion. ABDOMEN Soft, flat, nontender. No guarding/rebound tenderness/masses. Bowel sounds presents EXTREMITIES 1+ edema of LE, no cyanosis.? SKIN Warm and dry, no jaundice/rashes. NEUROMUSCULAR No lumbar or midline, no CVA, no paraspinal muscle spasm or tenderness. Moves all 4 extremities well, with full ROM and good CSM. JOHNSON x4, CN II-XII grossly intact. No focal neurologic deficits. PSYCHIATRY Normal mood and affect, cooperative, no SI or HI or hallucinations. Assessment & Plan Diagnosis / Problem List (1) Insulin dependent diabetes mellitus: Status: Acute (2) Hypertension: Status: Acute Qualifiers: Hypertension type: primary hypertension Qualified Code(s): I10 - Essential (primary) hypertension (3) HLD (hyperlipidemia): Status: Acute Qualifiers: Hyperlipidemia type: mixed hyperlipidemia Qualified Code(s): E78.2 - Mixed hyperlipidemia (4) Diastolic CHF: Status: Acute Qualifiers: Heart failure chronicity: chronic Qualified Code(s): I50.32 - Chronic diastolic (congestive) heart failure (5) Lower extremity edema: Status: Acute (6) Impaired mobility: Status: Acute Plan The patient has struggled with medication adherence, often claiming she is out of medications or blaming the pharmacy, particularly [facility], for not notifying her when prescriptions are ready or for stating that medications are not covered. Given this, her medications have been switched to [facility] to ensure better communication and reliable refills. I reviewed her medication regimen, instructing her to take Insulin Glargine 15 units at bedtime and Insulin Lispro 3 units three times daily before meals, emphasizing the importance of adhering to this routine due to her elevated A1c of 13.1%. Additionally, I explained the need for fingerstick glucose monitoring before and after each dose. I provided a CGM sensor and advised her to reorder new sensors through [employer], which should be covered by Medicare due to her chronic insulin use. A statin was started for hyperlipidemia, and the importance of taking blood pressure medications consistently was reinforced, as her blood pressure has been persistently high. I also reached out to cardiology to arrange a follow-up appointment next week. Moving forward, we will continue to monitor her adherence to the medication regimen, blood sugar, and blood pressure, with reassessment at the next visit. Labs from 03/30/25 remarkable for GLUCOSE 232, ALBUMIN 3.6, ALP 156, normal LFTs, cholesterol 244, TG 254, LDL 153, HDL 44, A1c 13.6, BNP 399. Renal function was normal. CBC and thyroid function WNL. Has 1+ LE edema on exam, remainder exam WNL. Called Dr. Pearl's office, she had ECHO in 07/2024 showing EEF 55-60% and Grade 1 diastolic dysfunction. PLAN: Continue taking medications as prescribed below ? ATORVASTATIN 40 mg HS ? CARVEDILOL 6.25 mg BID ? FUROSEMIDE 20 mg daily ? LOSARTAN 100 mg daily ? METFORMIN 100 mg daily ? RYBELSUS 3 mg daily ? INSULIN GLARGINE 15 units HS ? Insulin lispro 3 units TID before meals Return to office in 3 months or PRN. Please follow-up with Cardiology (appt made for next week on Mon). Return with BP and BG reads, bring or email medication list (email provided). Please call or email if unable to obtain meds. Advanced Care Planning Advance care planning discussed with:: patient and child Office Procedures [facility] Level of Care Nursing/Assessment Patient Status: Established Patient Nursing Assessment/Reassessment: Medication Reconciliation, Update PMH in EMR and Vital Signs Coordination of Care: Complex Care and Chronic Disease 1-5, Consent,records obtained, informed consent, Education Simp Pt/Fam and Staff clarify orders Established Patient Charge Established Patient Point Assignment: 85 Established Patient Point Charge: EP Level 3 (80-115)
== END 2025-04-15 10:50 | disposition home or self-care (01) ==
LOC: HODAHC 09:40
PROVIDERS: Supervising Provider Internal Medicine
DX: E11.9 Type 2 diabetes mellitus without complications (principal); Z79.4 Long term (current) use of insulin; Z79.84 Long term (current) use of oral hypoglycemic drugs; E78.2 Mixed hyperlipidemia; I11.0 Hypertensive heart disease with heart failure; I50.30 Unspecified diastolic (congestive) heart failure; R60.0 Localized edema; Z91.148 Patient's other noncompliance with medication regimen for other reason; E66.9 Obesity, unspecified; Z68.41 Body mass index [BMI] 40.0-44.9, adult
CPT/HCPCS: 99213; G0463